=== PATIENT | female | born 1995 | race Two or more races ===

== ENCOUNTER 2024-11-25 15:05 | Emergency (ER) | payer MEDICAID, SELFPAY ==
[2024-11-25 15:06] VITALS: BMI 43.9
[2024-11-25 16:01] VITALS: BP 121/78; PULSE 82; RESP 18; TEMP 37.1; O2SAT 99
--- NOTE | 2024-11-25 16:19 | PD.EDRME ---
Rapid Medical Screening Exam RME Arrival date/time: 11/25/24 15:05 This is a 29-year-old female with complaints of vaginal bleeding. Patient states she just found out she is . Patient's last menstrual cycle was September 30, 2024. Patient states that she was not trying to get . Patient is currently going through a divorce. Patient has a new partner. Patient also states that she recently found out she has chlamydia. Patient was seen by primary provider and was diagnosed. Patient has not started her medication yet. Patient found out she was today. Patient does not want staff to share information with family members. I have greeted and performed a focused initial assessment of this patient. Initial appropriate labs ordered at this time. A comprehensive ED assessment and evaluation of the patient and analysis of all test and completion of medical decision making process will be conducted by additional ED provider. Chief Complaint: Urogenital-Female Time Seen by Provider: 11/25/24 15:34 Vital signs: Vital Signs Temperature 98.8 F 11/25/24 16:01 Pulse Rate 82 11/25/24 16:01 Respiratory Rate 18 11/25/24 16:01 Blood Pressure 121/78 11/25/24 16:01 Pulse Oximetry (%) 99 11/25/24 16:01 Oxygen Delivery Method Room Air 11/25/24 16:01
--- NOTE | 2024-11-25 16:22 | XR_ITS ---
Examination: OB Transvaginal ultrasound of the pelvis, complete Technique: Transvaginal sonographic images pelvis performed using hickman scale imaging Exam date and time: November 25, 2024 at 1639 hours INDICATIONS: Pelvic pain and vaginal bleeding beginning 4 days ago FINDINGS: Uterus 6.8 cm,, no intrauterine gestation Right ovary 2.7 cm arterial flow Left ovary 1.9 cm arterial flow anechoic area with minimal vascularity and internal debris left ovary measuring 18 x 17 x 19 mm IMPRESSION: No intrauterine gestation Suspicious for left adnexal , clinical correlation advised, recommend short term follow-up transvaginal pelvic sonography
[2024-11-25 16:45] LABS: Basophils % (Auto) 0 % (0-2.5); Eosinophils # (Auto) 0.2 Thou/mm3 (0.0-0.5); Eosinophils % (Auto) 3 % (0-10); Hematocrit 31.6 % (36.0-46.0); Immature Granulocytes % (Auto) 0 % (0-0); Immature Granulocytes Auto 0.03 Thou/mm3 (0.00-0.00); Lymphocytes # (Auto) 1.6 Thou/mm3 (1.0-4.8); Lymphocytes % (Auto) 23 % (10-50); Mean Corpuscular HGB Conc 34.8 g/dl (31.0-37.0); Mean Corpuscular Hemoglobin 28.6 pg (25.0-35.0); Mean Corpuscular Volume 82 fL (80-100); Monocytes # (Auto) 0.4 Thou/mm3 (0.0-0.8); Monocytes % (Auto) 6 % (0-12); Neutrophils # (Auto) 4.5 Thou/mm3 (1.8-7.7); Neutrophils % (Auto) 67 % (37-80); Nucleated Red Blood Cell % 0 /100 WBC (0); Platelet Count 150 Thou/mm3 (140-440); RDW Standard Deviation 41.5 fL (36.4-46.3); Red Blood Count 3.84 Miln/mm3 (4.00-5.20); White Blood Count 6.8 Thou/mm3 (3.6-11.0)
[2024-11-25 17:06] LABS: Alanine Aminotransferase 32 U/L (10-49); Albumin, Serum 4.3 gm/dL (3.5-5.0); Albumin/Globulin Ratio 1.4 (1.2-2.2); Alkaline Phosphatase 66 U/L (46-116); Anion Gap 10 (7-16); Aspartate Amino Transferase 25 U/L (0-34); BUN/Creatinine Ratio 14 Ratio (12-20); Beta HCG,Quantitative 20 mIU/mL (<5.0); Bilirubin,Total 0.3 mg/dL (0.3-1.2); Blood Urea Nitrogen 10 mg/dL (9-23); Chloride 104 mMol/L (98-107); Creatinine (Component) 0.7 mg/dL (0.6-1.3); Glucose 108 mg/dL (74-106); Osmolality,Calculated 279 (275-295); Potassium 3.9 mMol/L (3.4-5.1); Sodium 140 mMol/L (136-145); Total Protein 7.3 gm/dL (5.7-8.2); eGFR > 60 See Note
[2024-11-25 17:09] VITALS: BP 116/75; PULSE 78; RESP 18; TEMP 36.6; O2SAT 99
[2024-11-25 17:21] LABS: Collection Type, Urine Voided
[2024-11-25 17:28] LABS: Bilirubin,Urine Negative (Negative); Blood,Urine 2+ (Negative); Clarity,Urine Clear (Clear/Hazy); Color,Urine Lt-Yellow (Lt Yel-Yel); Culture Indicated,Urine Not Indicated; Glucose, Urine Negative (Negative); Ketones,Urine Negative (Negative); Leukocyte Esterase,Urine Negative (Negative); Nitrite,Urine Negative (Negative); Protein,Urine Negative (Neg - Trace); RBC,Urine 14 /hpf (0-3); Specific Gravity,Urine 1.022 (1.001-1.035); Squamous Epithelial Cell,Urine 1 /hpf (0-5); Urobilinogen,Urine Negative mg/dL (0.0-1.0); WBC,Urine 3 /hpf (0-5)
--- NOTE | 2024-11-25 18:55 | EDNOTE_ITS ---
ED Female Urogenital RME/HPI General Chief complaint: Urogenital-Female Stated complaint: VAG BLEEDING x4 DAYS AND 5 WEEKS PREG Time Seen by Provider: 11/25/24 15:34 Arrival date/time: 11/25/24 15:05 RME / HPI RME / HPI Narrative: 11/25/24 15:05 This is a 29-year-old female with complaints of vaginal bleeding. Patient states she just found out she is . Patient's last menstrual cycle was September 30, 2024. Patient states that she was not trying to get . Patient is currently going through a divorce. Patient has a new partner. Patient also states that she recently found out she has chlamydia. Patient was seen by primary provider and was diagnosed. Patient has not started her medication yet. Patient found out she was today. Patient does not want staff to share information with family members. I have greeted and performed a focused initial assessment of this patient. Initial appropriate labs ordered at this time. A comprehensive ED assessment and evaluation of the patient and analysis of all test and completion of medical decision making process will be conducted by additional ED provider. This section includes all my notes and documentations, including HPI, PE, and ED course. Marcial Rg MD HPI: 29 y/o female presents to ED c/o heavy bleeding and cramping x 4 days. Patient's LMP was 09/30/24 and had a positive at-home test. Patient reports feeling fine now. Minimal bleeding currently. Cramping almost resolved today. No other complaints. ROS: All negative except as documented in HPI. Physical Exam: General: Alert and oriented. No acute distress when remaining still. Eyes: Conjunctivae and lids clear. ENT: No nasal congestion. Neck: Supple. Heart: RRR. Lungs: No respiratory distress. Good air movement. No rhonchi, wheezing, r ales. Abdomen: Soft and nontender. Normal bowel sounds. No distension. No rebound or guarding. Back: No CVA tenderness. Skin: Warm and dry. Neuro: Alert and oriented X 3. I reviewed all diagnostic test results. My review of the US report is: No intrauterine gestation. Blood tests and urine tests remarkable for beta-hCG 20. At this point, diagnoses include Miscarriage. Recommended expectant management. Based on my best medical judgment, made decision no further evaluation or treatment indicated at this time. Patient understands and agrees to the discha rge instructions customized and printed, see below. Discharge Instructions from Dr. Rg printed for you: 1. Unfortunately, you are having a miscarriage. 2. So you may continue to have bleeding and cramping as your body tries to get everything out of the uterus. 3. To help your body replace red blood cells, take your iron pills at home. And increase food rich in iron, such as red meat and egg yolks and seaweed. 4. See a private doctor on 11/26/2024 for recheck. Ask to review all test results and official radiology reports, to make sure you receive all necessary follow-ups and monitoring. Ask for help until you are completely better. 5. Seek immediate medical care with worsening or with any concerns. Marcial Rg MD Related Data Allergies Allergy/AdvReac Type Severity Reaction Status Date / Time No Known Allergies Allergy Verified 11/25/24 15:08 Review of Systems Review of Systems Systems Reviewed: All systems reviewed, normal except as documented Past Medical History Social History SMOKING STATUS: Never smoker ED Exam Narrative Physical exam: Refer to HPI above Course Quality Measures none Orders Category Date Time Status US OB transvaginal Stat Exams 11/25/24 16:22 Completed ABO/RH Type - Stat Lab 11/25/24 16:32 Completed Beta HCG,Quantitative Stat Lab 11/25/24 16:32 Completed CBC Stat Lab 11/25/24 16:32 Completed Comprehensive Metabolic Panel Stat Lab 11/25/24 16:32 Completed Urinalysis, C/S if Indicated Stat Lab 11/25/24 17:13 Completed Vital Signs Vital signs: Vital Signs Temperature 98.8 F 11/25/24 16:01 Pulse Rate 82 11/25/24 16:01 Respiratory Rate 18 11/25/24 16:01 Blood Pressure 121/78 11/25/24 16:01 Pulse Oximetry (%) 99 11/25/24 16:01 Oxygen Delivery Method Room Air 11/25/24 16:01 Urogenital - Female MDM Narrative MDM Narrative:: Scribe Attestation: IMary Kate, am scribing for and in the presence of Dr. Rg. Provider Notation: Although this document has been carefully reviewed, there may still be some phonetic and other typographical errors.? These errors are purely grammatical due to imperfections in the software program and should not be construed in any way to? compromise the substance of the patient's medical care during this visit. 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 Patient data External records reviewed:: [facility] previous records (No prior ED records available for review.) Clinical information provided by:: patient Social determinants that could affect healthcare access:: none Patient has the following chronic illnesses:: None reported How is presenting disease/condition affected by chronic disease/condition?: no chronic disease Evaluation data The following diagnostics were reviewed and interpreted by me:: lab results and radiology exam(s) Lab and/or radiology exams considered but not ordered:: None Interpretation Summary: I reviewed all diagnostic test results. My review of the US report is: No intrauterine gestation. Blood tests and urine tests remarkable for beta-hCG 20. Medications / Prescriptions Medications or Prescriptions considered but not ordered:: None Medication administrations:: N/A Consultations Consultation(s) initiated? (list below): No Diagnosis Urogenital Female Differential Diagnosis: urinary tract infection, cervicitis, ovarian cyst, dysmenorrhea and other (Threatened miscarriage, incomplete miscarriage, complete miscarriage, IUP, ectopic) Most likely diagnosis given after review of the tests above:: Miscarriage Admission Indicated Admission indicated?: not indicated Explain why admission is indicated or not indicated:: There was no indication for admission. Admission Request Was there a request for admission?: No Disposition Plan Disposition Plan: Discharge Discharge Attestation Discharge Attestation: The patient and all family members were given an opportunity to ask questions and understood the discharge instructions. Discharge instructions specifically effects, indications for sooner follow up or return to the emergency department, and the expected course of current diagnosis. Patient condition: Stable Discharge Plan Plan Patient Disposition: HOME (Self Care) Prescriptions/Referrals Referrals: No Primary/Family,Physician [Primary Care Provider] - In 1 week Problem List Clinical Impression: Miscarriage Patient/Caregiver Discharge Instructions Discharge Activity: activity as tolerated Education Materials: ED MISCARRIAGE Completed Additional Instructions: Discharge Instructions from Dr. Rg printed for you: 1. Unfortunately, you are having a miscarriage. 2. So you may continue to have bleeding and cramping as your body tries to get everything out of the uterus. 3. To help your body replace red blood cells, take your iron pills at home. And increase food rich in iron, such as red meat and egg yolks and seaweed. 4. See a private doctor on 11/26/2024 for recheck. Ask to review all test results and official radiology reports, to make sure you receive all necessary follow-ups and monitoring. Ask for help until you are completely better. 5. Seek immediate medical care with worsening or with any concerns. Print Language: Welsh Stand Alone Forms: Felicia Award Info., Patient Portal Info Letter
== END 2024-11-25 19:10 | disposition home or self-care (01) ==
PROVIDERS: Nurse Practitioner Family; Emergency Provider Emergency Medicine
DX: O03.9 Complete or unspecified spontaneous abortion without complication (principal); Z3A.01 Less than 8 weeks gestation of pregnancy
CPT/HCPCS: 36415; 76817; 80053; 81001; 84702; 85025; 86900; 86901; 99284